=== PATIENT | female | born 1960 ===

== ENCOUNTER 2019-06-12 11:47 | Emergency (ER) | payer BC ==
--- OUTSIDE RECORDS SUMMARY | 2019-06-12 12:24 | XMS REPORT | Summary of Care ---
:1960 Author Organization [facility] Address [address] [place] [address] Care Team Providers Name Role Phone Quincy Kelley MD Primary Care Provider Reason for Visit Reason Comments Arm Pain Bilateral arm pain from the elbow down to her finger tips for a week. Encounter Details Date Type Department Care Team Description 04/29/2019 Office Visit Brenda Olea Denisha, Lateral epicondylitis of both elbows (Primary Dx); Practice [address] [place] [id number] [place] [address] [phone] Allergies Active Allergy Reactions Severity Noted Date Comments Augmentin GI Reaction 05/06/2018 Upper abd pain, amoxicillin tolerated but ineffective for sinus infection, cephalosporin tolerated and effective Clarithromycin GI Reaction 05/06/2018 Upper abd pain documented as of this encounter (statuses as of 04/29/2019) Medications Medication Sig Dispensed Refills Start Date End Date Status Cranberry Juice Extract Take by mouth. 0 Active 1000 MG Oral Cap Cyanocobalamin (VITAMIN Take 5,000 mcg 0 Active B-12) 5000 MCG Oral by mouth DAILY. TABLET DISPERSIBLE PHRK-GOLC-KKGZWVDING-CODE Take 1 Cap by 0 Active INE (FIORICET/CODEINE) mouth EVERY 30-874-07-30 MG Oral Cap FOUR HOURS NEEDED. meclizine (ANTIVERT) 25 Take 25 mg by 0 Active MG Oral Tab mouth THREE TIMES DAILY NEEDED. pantoprazole (PROTONIX) Take 1 Tab by 30 Tab 5 12/30/2018 Active 40 MG Oral Tab mouth DAILY. ECIndications: Other chest pain Multiple Vitamin (VITAMIN Take by mouth. 0 Active E/FOLIC ACID/B-6/B-12 Indications: b PO)Indications: b 6 daily 6 daily Phendimetrazine Tartrate Take 1 Tab by 90 Tab 0 04/06/2019 Active 35 MG Oral Tab mouth THREE TIMES DAILY. Max Daily Amount: 105 mg. documented as of this encounter (statuses as of 04/29/2019) Active Problems Problem Noted Date Anal skin tag 10/13/2018 Spinal stenosis Overview: neck and lumbar Ovarian cyst Overview: left side Cerebrospinal fluid leak from spinal puncture Dizziness Benign positional vertigo Familial hypocalciuric hypercalcemia documented as of this encounter (statuses as of 04/29/2019) Immunizations Name Administration Dates Next Due Influenza (IM) Preservative Free 06/09/2018 documented as of this encounter Social History Tobacco Use Types Packs/Day Years Used Date Never Smoker Smokeless Tobacco: Never Used Alcohol Use Drinks/Week oz/Week Comments Not Currently rare when she does Sex Assigned at Date Recorded Not on file Job Start Date Occupation Industry Not on file Not on file Not on file Travel History Travel Start Travel End No recent travel history available. documented as of this encounter Last Filed Vital Signs Vital Sign Reading Time Taken Comments Blood Pressure 122/60 04/29/2019 9:11 AM EDT Pulse 64 04/29/2019 9:11 AM EDT Temperature - - Respiratory Rate - - Oxygen Saturation - - Inhaled Oxygen Concentration - - Weight 73 kg (161 lb) 04/29/2019 9:11 AM EDT Height 165.1 cm (5' 5") 04/29/2019 9:11 AM EDT Body Mass Index 26.79 04/29/2019 9:11 AM EDT documented in this encounter Patient Instructions Patient InstructionsDenisha Olea FNP - 04/29/2019 9:00 AM EDT2 extra strength tylenol with 2-3 Ibuprofen 3 times a day with food for next 5 days Heat to hands, ice to elbows Call if pain persists without improvement on Thursday - will refer to PT then documented in this encounter Progress Notes Denisha Olea FNP - 04/29/2019 9:00 AM EDT PATIENT: Janine Valdivia : 1960 DATE OF SERVICE: 04/29/2019 CHIEF COMPLAINT: Chief Complaint Patient presents with Arm Pain Bilateral arm pain from the elbow down to her finger tips for a week. Subjective HISTORY OF PRESENT ILLNESS: Janine Valdivia is a 58-y.o. female. HPI Pain both forarms and hands - was helping daughter with construction project. Has been using up to 1g tylenol Past Medical History: Diagnosis Date Arthritis Back pain Benign positional vertigo Cerebrospinal fluid leak from spinal puncture Dizziness Familial hypocalciuric hypercalcemia GERD (gastroesophageal reflux disease) Ovarian cyst left side Spinal stenosis neck and lumbar Family History Problem Relation Age of Onset Stroke Mother Diabetes Mother Heart Disease Mother [place] age 35 r/t smoking and BCP High Cholesterol Father Emphysema Father smoked for years COPD Father Asthma Sister COPD Sister High Cholesterol Brother Current Outpatient Medications Medication Sig [id number]-BTLV-LSBUMBXEGZ-CODEINE (FIORICET/CODEINE) 51-080-23-30 MG Oral Cap Take 1 Cap by mouth EVERY FOUR HOURS NEEDED. Cranberry Juice Extract 1000 MG Oral Cap Take by mouth. Cyanocobalamin (VITAMIN B-12) 5000 MCG Oral TABLET DISPERSIBLE Take 5, 000 mcg by mouth DAILY. meclizine (ANTIVERT) 25 MG Oral Tab Take 25 mg by mouth THREE TIMES DAILY NEEDED. Multiple Vitamin (VITAMIN E/FOLIC ACID/B-6/B-12 PO) Take by mouth. Indications: b 6 daily pantoprazole (PROTONIX) 40 MG Oral Tab EC Take 1 Tab by mouth DAILY. Phendimetrazine Tartrate 35 MG Oral Tab Take 1 Tab by mouth THREE TIMES DAILY. Max Daily Amount: 105 mg. No current facility-administered medications for this visit. Allergies Allergen Reactions Augmentin GI Reaction Upper abd pain, amoxicillin tolerated but ineffective for sinus infection, cephalosporin toleratedand effective Biaxin [Clarithromycin] GI Reaction Upper abd pain Social History Socioeconomic History Marital status: Spouse name: Not on file Number of children: Not on file Years of education: Not on file Highest education level: Not on file Occupational History Not on file Social Needs Financial resource strain: Not on file Food insecurity: Worry: Not on file Inability: Not on file Transportation needs: Medical: Not on file Non-medical: Not on file Tobacco Use Smoking status: Never Smoker Smokeless tobacco: Never Used Substance and Sexual Activity Alcohol use: Not Currently Comment: rare when she does Drug use: Never Sexual activity: Yes Partners: Male Lifestyle Physical activity: Days per week: Not on file Minutes per session: Not on file Stress: Not on file Relationships Social connections: Talks on phone: Not on file Gets together: Not on file Attends rastafari service: Not on file Active member of club or organization: Not on file Attends meetings of clubs or organizations: Not on file Relationship status: Not on file Intimate partner violence: Fear of current or ex partner: Not on file Emotionally abused: Not on file Physically abused: Not on file Forced sexual activity: Not on file Other Topics Concern Not on file Social History Narrative REVIEW OF SYSTEMS: Review of Systems Constitutional: Negative for chills and fever. Musculoskeletal: Positive for joint pain and myalgias. Neurological: Negative for tingling. Objective PHYSICAL EXAM: VITALS: BP 122/60 | Pulse 64 | Ht 5' 5" (1.651 m) | Wt 161 lb (73 kg) | LMP (LMP Unknown) | BMI 26.79 kg/m Body mass index is 26.79 kg/m. Physical Exam Constitutional: She is oriented to person, place, and time. Vital signs are normal. She appears well-developed and well-nourished. HENT: Head: Normocephalic and atraumatic. Musculoskeletal: Right elbow: She exhibits normal range of motion and no swelling. Tenderness found. Lateral epicondyle tenderness noted. Left elbow: She exhibits normal range of motion and no swelling. Tenderness found. Lateral epicondyle tenderness noted. Hands: Lymphadenopathy: Right: No epitrochlear adenopathy present. Left: No epitrochlear adenopathy present. Neurological: She is alert and oriented to person, place, and time. No cranial nerve deficit or sensory deficit. Skin: Skin is warm and dry. Capillary refill takes less than 2 seconds. No ecchymosis and no rash noted. No erythema. No pallor. Vitals reviewed. ASSESSMENT / IMPRESSION: ICD-9-CM ICD-10-CM 1. Lateral epicondylitis of both elbows 726.32 M77.11 M77.12 2. 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 Plan 2 extra strength tylenol with 2-3 Ibuprofen 3 times a day with food for next 5 days Heat to hands, ice to elbows Call if pain persists without improvement on Thursday - will refer to PT then Author: BAMBI Sultana 04/29/2019 09:31 documented in this encounter Plan of Treatment Date Type Specialty Care Team Description 05/09/2019 Office Visit Bariatrics Douglas Heart MD [address] [place] [address] 10/10/2019 Lab Internal Medicine 10/17/2019 Office Visit Internal Medicine Quincy Kelley MD [address] [place], [place] [address] [phone] Health Maintenance Due Date Last Done Comments PAP SMEAR 1960 PNEUMOCOCCAL 0-64 YRS (1 of 1966 2 - PCV13) HEPATITIS C SCREENING 2000 MAMMOGRAM (SCREENING) 2000 ZOSTER IMMUNIZATION SERIES 2010 (1 of 2) INFLUENZA VACCINE (#1) 2019 06/09/2018 DEPRESSION SCREENING 08/05/2019 08/05/2018 DIABETES SCREENING 03/31/2020 03/31/2019, 11/16/2018, 08/05/2018, Additional history exists LIPID DISORDER SCREENING 03/31/2024 03/31/2019, 05/06/2018 COLONOSCOPY SCREENING 05/10/2027 05/10/2017 HPV IMMUNIZATION SERIES Aged Out No longer eligible based on patient's age to complete this topic MENINGOCOCCAL VACCINE IMM Aged Out No longer eligible based on patient's age to complete this topic documented as of this encounter Results Not on filedocumented in this encounter Visit Diagnoses Diagnosis Lateral epicondylitis of both elbows - Primary Lateral epicondylitis of elbow [place]berden nodes Generalized osteoarthrosis, involving hand documented in this encounter Insurance Payer Benefit Plan / Subscriber ID Effective Dates Phone Address Type Group BCBS NATIONAL BC[employer] N[employer] xxxxxxxxxxxx 2018-Present Blue Cross/Blue Shield documented as of this encounter
--- OUTSIDE RECORDS SUMMARY | 2019-06-12 12:24 | XMS REPORT | Summary of Care ---
:1960 Author Organization [facility] Address [address] [facility] [place] [address] Care Team Providers Name Role Phone Quincy Kelley MD Primary Care Provider Reason for Visit Reason Comments Obesity Follow Up Encounter Details Date Type Department Care Team Description 05/02/2019 Office Visit [facility], Non morbid obesity, unspecified obesity type (Primary Dx); Bariatrics - Brady Cole MD Dyslipidemia; [address] [facility] Gastroesophageal reflux disease, esophagitis presence not specified [place] [address] [place] [address] Allergies Active Allergy Reactions Severity Noted Date Comments Augmentin GI Reaction 05/06/2018 Upper abd pain, amoxicillin tolerated but ineffective for sinus infection, cephalosporin tolerated and effective Clarithromycin GI Reaction 05/06/2018 Upper abd pain documented as of this encounter (statuses as of 05/02/2019) Medications Medication Sig Dispensed Refills Start Date End Date Status Cranberry Juice Extract Take by mouth. 0 Active 1000 MG Oral Cap Cyanocobalamin (VITAMIN Take 5,000 mcg 0 Active B-12) 5000 MCG Oral by mouth DAILY. TABLET DISPERSIBLE AIAD-IWNW-RXRNMCLFKM-CODE Take 1 Cap by 0 Active INE (FIORICET/CODEINE) mouth EVERY 54-549-55-30 MG Oral Cap FOUR HOURS NEEDED. meclizine [...] Take 1 Tab by 90 Tab 0 04/29/2019 Active 35 MG Oral Tab mouth THREE TIMES DAILY. Max Daily Amount: 105 mg. documented as of this encounter (statuses as of 05/02/2019) Active Problems Problem Noted Date Anal skin tag 10/13/2018 Spinal stenosis Overview: neck and lumbar Ovarian cyst Overview: left side Cerebrospinal fluid leak from spinal puncture Dizziness Benign positional vertigo Familial hypocalciuric hypercalcemia documented as of this encounter (statuses as of 05/02/2019) Immunizations Name Administration Dates Next Due Influenza [...] Sign Reading Time Taken Comments Blood Pressure 110/64 05/02/2019 10:57 AM EDT Pulse 78 05/02/2019 10:57 AM EDT Temperature - - Respiratory Rate - - Oxygen Saturation 97% 05/02/2019 10:57 AM EDT Inhaled Oxygen Concentration - - Weight 74.4 kg (164 lb) 05/02/2019 10:57 AM EDT Height 165.1 cm (5' 5") 05/02/2019 10:57 AM EDT Body Mass Index 27.29 05/02/2019 10:57 AM EDT documented in this encounter Progress Notes Douglas Heart MD - 05/02/2019 10:40 AM EDT PATIENT: Janine Valdivia : 1960 DATE OF SERVICE: 05/02/2019 REFERRING PRACTITIONER: Other PRIMARY CARE PROVIDER: Quincy Kelley Chief Complaint Patient presents with Obesity Follow Up HISTORY OF PRESENT ILLNESS: Janine Valdivia is a 58-y.o. female who presents for follow up treatment of obesity and related diseases. She is going on a cruise for her 40th anniversary - [place]. She reports no new medical issues in the interim. She was prescribed Phendimetrazine 35 mg tid and is tolerating it well. Her dietary compliance as reported is fairly good. The patient is not skipping meals. She is keeping a consistent food journal. She is eating about 1000 to 1100 calories per day. She is generally getting adequate protein. The patient reports that she has been helping her daughter with a construction project. She now hastendonitis and hopes to get back to the elliptical Past Medical History: Diagnosis Date Arthritis Back pain Benign positional vertigo Cerebrospinal fluid leak from spinal puncture Dizziness Familial hypocalciuric hypercalcemia GERD (gastroesophageal reflux disease) Ovarian cyst left side Spinal stenosis neck and lumbar Past Surgical History: Procedure Laterality Date COLONOSCOPY ME OPEN POST RX CERV VERT FX,1 LVL cerical fusion C4-5, C5-6 Family History Problem Relation Age of Onset Stroke Mother Diabetes Mother Heart Disease Mother [place] age 35 r/t smoking and BCP High Cholesterol Father Emphysema Father smoked for years COPD Father Asthma Sister COPD Sister High Cholesterol Brother Social History Tobacco Use Smoking status: Never Smoker Smokeless tobacco: Never Used Substance Use Topics Alcohol use: Not Currently Comment: rare when she does Current Outpatient Medications Medication Sig VVEN-AXIH-JHSCUXYESM-CODEINE (FIORICET/CODEINE) 74-140-23-30 MG Oral Cap Take 1 Cap by [...] Biaxin [Clarithromycin] GI Reaction Upper abd pain REVIEW OF SYSTEMS: CONSTITUTIONAL: Negative RESPIRATORY: Negative CARDIOVASCULAR: Negative GASTROINTESTINAL: Negative. GENITOURINARY:Negative MUSCULOSKELETAL: Negative NEUROLOGICAL: Negative. PSYCH: Negative. There are no exam notes on file for this visit. PHYSICAL EXAMINATION: VITALS: BP 110/64 | Pulse 78 | Ht 5' 5" (1.651 m) | Wt 164 lb (74.4 kg) | LMP (LMP Unknown) |SpO2 97% | BMI 27.29 kg/m BODY COMPOSITION AND MEASUREMENTS: BODY COMPOSITION HISTORY Body Composition 04/07/2019 04/29/2019 05/02/2019 Weight 172 lb 161 lb 164 lb LEAN BODY MASS (lbs) - - 96.1 BODY FAT MASS (lbs) - - 67.9 BMI (Calculated) 28.62 26.79 27.29 Body Fat % - - 41.4 BASAL METABOLIC RATE (kcal) - - 1312 EXCESS BODY FAT (lbs) - - 38.8 VISCERAL FAT AREA (cm2) - - 167.9 LEAN BODY MASS DEFICIT (lbs) - - 1.1 NECK CIRCUMFERENCE (in) - - - WAIST CIRCUMFERENCE (in) - - - HIP CIRCUMFERENCE (in) - - - GENERAL: No acute distress; moderately obese PULMONARY: Clear to auscultation bilaterally CARDIOVASCULAR: Regular rate and rhythm; no murmurs, no rubs, no gallops ABDOMEN: Soft, non tender, no organomegaly, no masses appreciated. truncal adiposity present MUSCULOSKELETAL: no clubbing, cyanosis or edema NEUROLOGICAL: Alert and oriented x 3 PSYCH: Appropriate mood and affect LABORATORY STUDIES: Triglycerides Date Value Ref Range Status 03/31/2019 61 <150 mg/dl Final HDL Cholesterol Date Value Ref Range Status 03/31/2019 40 >50 mg/dl Final LDL Cholesterol Date Value Ref Range Status 03/31/2019 118 <100 MG/DL Final TSH Date Value Ref Range Status 03/31/2019 3.57 0.47 - 4.68 uIu/ml Final IMPRESSION: ICD-9-CM ICD-10-CM 1. Non morbid obesity, unspecified obesity type 278.00 E66.9 2. Dyslipidemia 272.4 E78.5 3. Gastroesophageal reflux disease, esophagitis presence not specified 530.81 K21.9 PLAN: Janine Valdivia is a 58-y.o. year-old female with Body mass index is 27.29 kg/m .. Obesity by body composition Weight is decreased 9.7 lbs in the interim; this reflects a(n) decrease in lean body mass of 1.8 lbs(1.6 lbs of which was total body water) and decrease in fat mass of 7.9 lbs Continue with 1000 calories per day; 30 g protein per meal; 30 g carbs per meal Moderate intensity exercise for 30 minutes, at least 5 days per week Continue Phendimetrazine 35 mg tid Low lean body mass Deficit of 1.1 lbs Adequate protein, adequate calories Dyslipidemia Diet and exercise as above GERD Likely some element of fat mass effect Expect improvement in symptoms as weight loss progresses Follow up: 4 weeks Author: Douglas Heart MD 05/02/2019 11:06 documented in this encounter Plan of Treatment Date Type Specialty Care Team Description 05/09/2019 Office Visit Bariatrics Douglas Heart MD [address] [place] [address] [phone] 10/10/2019 Lab Internal Medicine 10/17/2019 Office Visit Internal Medicine Quincy Kelley MD [address] [place] [address] [phone] Health Maintenance Due Date Last Done Comments [...] filedocumented in this encounter Visit Diagnoses Diagnosis Non morbid obesity, unspecified obesity type - Primary Dyslipidemia Other and unspecified hyperlipidemia Gastroesophageal reflux disease, esophagitis presence not specified documented in this encounter Insurance Payer Benefit Plan / Subscriber ID Effective Dates Phone Address Type Group [facility] xxxxxxxxxxxx 2018-Present Blue Cross/Blue Shield documented as of this encounter
[2019-06-12 12:32] VITALS: BP 122/74
--- NOTE | 2019-06-12 12:41 | UC ---
Respiratory Complaint HPI - HPI Summary HPI Summary: 58 yo female recently returned from cruise to [facility] During the cruise she was diagnosed with the flu and started on Tamiflu she was quarantined until fever free now with cough/wheezing and severe left max sinus pain and upper dental pain ill for > 1 1/2 wks no cp or sob - History of Current Complaint Chief Complaint: UCRespiratory Stated Complaint: COUGH Time Seen by Provider: 06/12/19 12:26 Hx Obtained From: Patient Onset/Duration: Gradual Onset Timing: Constant Severity Initially: Mild Severity Currently: Moderate Pain Intensity: 6 Pain Scale Used: 0-10 Numeric Character: Cough: Productive Aggravating Factors: Nothing Alleviating Factors: Nothing Associated Signs And Symptoms: Positive: Fever - at onset, Chills - at onset, Wheezing - Allergies/Home Medications Allergies/Adverse Reactions: Allergies Allergy/AdvReac Type Severity Reaction Status Date / Time amoxicillin [From Augmentin] Allergy GI Upset Verified 06/12/19 12:32 clarithromycin [From Biaxin] Allergy GI Upset Verified 06/12/19 12:32 clavulanic acid Allergy GI Upset Verified 06/12/19 12:32 [From Augmentin] Home Medications: Home Medications Oseltamivir CAP* [Tamiflu CAP*] 75 mg PO BID 06/12/19 [History Confirmed ] Pantoprazole TAB * [Protonix TAB*] 40 mg PO DAILY 06/12/19 [History Confirmed ] Phendimetrazine Tartrate 35 mg PO TID 06/12/19 [History Confirmed 06/12/19] PMH/Surg Hx/FS Hx/Imm Hx Previously Healthy: Yes - Surgical History Surgical History: Yes Surgery Procedure, Year, and Place: c4-c5-c6 fusion and repair - Family History Known Family History: Positive: Hypertension, Other - "cancer", Non-Contributory - Social History Alcohol Use: None Substance Use Type: None Smoking Status (MU): Never Smoked Tobacco Review of Systems All Other Systems Reviewed And Are Negative: Yes Constitutional: Positive: Fatigue Skin: Positive: Negative Eyes: Positive: Negative ENT: Positive: Nasal Discharge, Sinus Congestion, Sinus Pain/Tenderness Respiratory: Positive: Cough, Other - wheezing Cardiovascular: Positive: Negative Gastrointestinal: Positive: Negative Genitourinary: Positive: Negative Motor: Positive: Negative Neurovascular: Positive: Negative Musculoskeletal: Positive: Negative Neurological: Positive: Negative Psychological: Positive: Negative Physical Exam Triage Information Reviewed: Yes Appearance: Well-Appearing, No Pain Distress, Well-Nourished Vital Signs: Initial Vital Signs Temp 98 F 06/12/19 12:23 Pulse 87 06/12/19 12:23 Resp 16 06/12/19 12:23 BP 122/74 06/12/19 12:23 Pulse Ox 100 06/12/19 12:23 Vital Signs Reviewed: Yes Eyes: Positive: Conjunctiva Clear ENT: Positive: Pharyngeal erythema, Nasal congestion, Nasal drainage, Sinus tenderness, Uvula midline. Negative: Hearing grossly normal, TMs normal - retracted and dull bilaterally, Tonsillar swelling, Tonsillar exudate, Trismus, Muffled voice, Hoarse voice Dental Exam: Normal Neck: Positive: Supple, Nontender, No Lymphadenopathy Respiratory: Positive: No respiratory distress, No accessory muscle use, Wheezing - right lower lobe Cardiovascular: Positive: RRR, No Murmur Musculoskeletal: Positive: No Edema Neurological: Positive: Alert Psychological Exam: Normal Skin Exam: Normal Diagnostics - Radiology No standard instances Radiology Interpretation Completed By: Radiologist Summary of Radiographic Findings: CXR NAD Respiratory Course/Dx - Differential Dx/Diagnosis Provider Diagnosis: Bronchitis, Sinusitis Discharge ED - Sign-Out/Discharge Documenting (check all that apply): Patient Departure All imaging exams completed and their final reports reviewed: Yes - Discharge Plan Condition: Stable Disposition: HOME Patient Education Materials: Sinusitis (ED), Acute Bronchitis (ED) Referrals: Quincy Kelley MD [Primary Care Provider] - 5 Days (if not better) - Billing Disposition and Condition Condition: STABLE Disposition: Home
== END 2019-06-12 13:50 | disposition home or self-care (01) ==
LOC: UCEAST 11:47
DX: J40 Bronchitis, not specified as acute or chronic (principal); J32.9 Chronic sinusitis, unspecified; R53.83 Other fatigue; Z88.0 Allergy status to penicillin; Z88.1 Allergy status to other antibiotic agents
CPT/HCPCS: 71046; 99212; G0463